=== PATIENT | female | born 1965 | race Caucasian/White ===

== ENCOUNTER → 2021-05-31 | Outpatient (CLI) | payer BC ==
[~2021-05-31] MED LIST: ADDERALL 20 MG20 MG PO; BUSPAR 10MG10 MG PO; ELIQUIS 2.5 MG2.5 MG PO; ELIQUIS5 MG PO; MULTI FOR HER1 EACH PO; PERCOCET 10-321 EACH PO; VITAMIN D22000 UNIT PO; VITAMIN D350 MCG PO; ZOLOFT100 MG PO
== END ==
LOC: KOH-I 09:48
DX: M25.511 Pain in right shoulder (principal); W19.XXXA Unspecified fall, initial encounter
CPT/HCPCS: 73030